=== PATIENT | female | born 1955 | race Caucasian/White ===

== ENCOUNTER 2018-12-14 00:44 | Inpatient (IN) | payer OTHER ==
[~2018-12-14] VITALS: Ht 134.6 cm; Wt 65.3 kg
[~2018-12-14 00:44] MED LIST: CARAFATE 11 GM/10 M1 PO; HUMALOG100 UNIT/1 SUBQ; LEVEMIR SUBQ; PROTONIX40 M1 PO; ZOFRAN ODT4 MG DISSOLVE
[2018-12-14 00:50] VITALS: BP 140/62
[2018-12-14 01:13] LABS: URINE BILIRUBIN NEGATIVE (Negative); URINE BLOOD 2+ (Negative); URINE COLOR YELLOW; URINE GLUCOSE-RANDOM* 1+ (Negative); URINE KETONES NEGATIVE (Negative); URINE NITRITE-REFLEX NEGATIVE (Negative); URINE PROTEIN (DIPSTICK) 1+ (Negative)
[2018-12-14 01:13] LABS: ABSOLUTE NEUTROPHILS 5.6 thou/uL (1.4-8.2); BASOPHILS 0.6 % (0.0-2.0); EOSINOPHILS 0.5 % (0.0-3.0); HEMATOCRIT 33.2 % (37.0-47.0); HEMOGLOBIN 10.9 gm/dL (12.0-15.0); LYMPHOCYTES 12.3 % (24.0-44.0); MCH 23.8 pg (26.0-34.0); MCHC 32.9 g/dL (28.0-37.0); MCV 72.4 fL (80.0-100.0); MONOCYTES 11.6 % (1.0-8.0); PLATELET COUNT 116 thou/uL (150-400); RBC 4.59 mil/uL (4.20-5.00); RDW 19.3 % (10.5-14.5); WBC 7.4 thou/uL (4.0-11.0)
[2018-12-14 01:14] LABS: URINE CLARITY CLOUDY; URINE LEUKOCYTES-REFLEX 1+ (Negative)
[2018-12-14 01:22] LABS: BACTERIA-REFLEX >30 Many /HPF (None Seen); CASTS None Seen /LPF (None Seen); CRYSTALS None Seen /LPF (None Seen); MUCUS None Seen strn/LPF (None Seen); SQUAMOUS None Seen /LPF (0-3); URINE RBC 3-10 Few /HPF (0-2)
[2018-12-14 01:25] LABS: ANION GAP 8 mmol/L (7-16); BUN 23 mg/dL (7-18); CHLORIDE 98 mmol/L (98-107); CO2 26 mmol/L (21-32); CREATININE 0.8 mg/dL (0.6-1.0); GLUCOSE 188 mg/dL (74-106); POTASSIUM 4.3 mmol/L (3.5-5.1); SODIUM 132 mmol/L (136-145)
[2018-12-14 01:36] LABS: ALBUMIN 2.8 g/dL (3.4-5.0); MAGNESIUM 1.6 mg/dL (1.8-2.4); SGOT 43 U/L (15-37); SGPT 49 U/L (30-65); TOTAL BILIRUBIN 0.9 mg/dL (<0.1-1.0); TOTAL PROTEIN 7.9 g/dL (6.4-8.2); TROPONIN-I <0.06 ng/mL (<0.06)
[2018-12-14 01:57] LABS: ANISOCYTOSIS 2+; HYPOCHROMASIA 1+; MICROCYTES 1+
[2018-12-14] MEDS ORDERED: LASIX 20 MG TAB20 MG PO (03:05)
[2018-12-14] MEDS ORDERED: SPIRONOLACTONE25 M1 PO (03:06)
[2018-12-14] MEDS ORDERED: LANSOPRAZOLE15 MG PO (03:06)
[2018-12-14] MEDS ORDERED: PROPRANOLOL 1010 MG PO (03:07)
[2018-12-14] MEDS ORDERED: HUMALOG100 UNIT/1 SUBQ (03:09)
[2018-12-14] MEDS ORDERED: LANTUS SUBQ (03:10)
--- NOTE | 2018-12-14 08:48 | EKG ---
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 : 1955 Requested By: Serafin Fuchs Order Number: [id number] MD: Lance Fernandez Measurements Intervals [place] Rate: 80 P: 12 RI: 128 QRS: 8 QRSD: 70 T: 28 QT: 341 QTc: 394 Interpretive Statements Sinus rhythm No significant abnormality No previous ECG available for comparison Electronically Signed On 12-14-2018 8:48:22 CDT by Lance Fernandez [email or web address] ��������������������������������������������� <ELECTRONICALLY SIGNED> ���������������������������������������� By: Lance Fernandez MD, [facility] ��������������������������������������������� 12/14/18 0848 0055 0055 Lance Fernandez MD, [facility] /EPI
[2018-12-14 12:28] LABS: CALCIUM 8.1 mg/dL (8.5-10.1); CREATININE 0.7 mg/dL (0.6-1.0); MAGNESIUM 2.1 mg/dL (1.8-2.4); POTASSIUM 4.4 mmol/L (3.5-5.1)
[2018-12-14 16:19] VITALS: BP 117/46
[2018-12-14 18:04] VITALS: BP 154/69
[2018-12-14 20:05] VITALS: BP 134/47
[2018-12-15 00:32] VITALS: BP 115/50
[2018-12-15 04:15] VITALS: BP 121/59
--- NOTE | 2018-12-15 04:19 | NUR ---
ASSUMED PT CARE AT 1900. PT A/OX4, NON-JORDANIAN SPEAKING, FAMILY AT BEDSIDE TO HELP TRANSLATE FOR PT. VITAL SIGNS STABLE, PT HAD A FEVER. TYLENOL GIVEN FOR THE FEVER WHICH SEEMED TO HELP. PT COMPLAINED OF SOME LEG AND BACK PAIN BUT DID NOT WANT PAIN MEDICATION. ADMISSION HISTORY COMPLETED WITH DAUGHTER'S INPUT. PT WAS ABLE TO REST THROUGH THE NIGHT. BLOOD SUGARS WITHIN NORMAL LIMITS. PROGRESSING TOWARD PLAN OF CARE. FAMILY AT BEDSIDE MOST OF THE TIME TO HELP WITH EFFECTIVE COMMUNICATION. WILL CONTINUE TO MONITOR.
[2018-12-15 08:00] VITALS: BP 124/55
--- NOTE | 2018-12-15 09:05 | EKG ---
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1955 Requested By: Herber Kline Order Number: [id number] MD: Lance Fernandez Measurements Intervals [place] Rate: 95 P: 42 NE: 147 QRS: 18 QRSD: 76 T: 31 QT: 337 QTc: 424 Interpretive Statements Sinus rhythm No significant abnormality Compared to ECG 12/14/2018 00:55:58 No significant change was found Electronically Signed On 12-15-2018 9:04:51 CDT by Lance Fernandez [email or web address] ��������������������������������������������� <ELECTRONICALLY SIGNED> ���������������������������������������� By: Lance Fernandez MD, [facility] ��������������������������������������������� 12/15/18 0904 11 11 Lance Fernandez MD, [facility] /EPI
--- NOTE | 2018-12-15 10:42 | NUR ---
AAOX4. CALM, COOPERATIVE. SPEAKS LITTLE LITHUANIAN; FAMILY AT BEDSIDE ARE FLUENT. AFEBRILE NOW. USES CALL LIGHT APPROPRIATELY. ASST TO BR, MINIMAL ASSIST. NPO AFTER BREAKFAST FOR CARDIAC TESTING. FREQUENT CHECKS; WILL CONTINUE TO MONITOR.
[2018-12-15 12:03] VITALS: BP 156/62
--- NOTE | 2018-12-15 12:24 | 2DMMODE ---
[facility] [address] [place] [address] 2 D/M-MODE ECHOCARDIOGRAM Name: LILLIAN HERMOSILLO Room #: 207-P ADM IN M.R.#: [id number] ������������� Admission: 12/14/18 ������������� Attend Phys: Herber Ryan Discharge: ��� ������������� ��� Date of : 55 Date of Service: 12/15/18 1224 �� Report #: [id number] �������� ��������������������������������������������[id number] THIS REPORT FOR: //name// APPROVED REPORT Study performed: 12/15/2018 11:18:44 EXAM: Comprehensive 2D, Doppler, and color-flow Echocardiogram Patient Location: Bedside Room #: 207 Status: routine BSA: 1.74 HR: 71 bpm BP: 124/55 mmHg Rhythm: NSR/PVCs Other Information Study Quality: Good Indications Dyspnea Chest Pain 2D Dimensions RVDd: 34.27 mm IVSd: 10.41 (7-11mm) LVOT Diam: 17.62 (18-24mm) LVDd: 39.49 mm PWd: 9.12 (7-11mm) Ascending Ao: 26.25 (22-36mm) LVDs: 28.53 (25-40mm) Aortic Root: 25.77 mm Volumes Left Atrial Volume (Systole) Single Plane 4CH: 42.38 mL Single Plane 2CH: 30.52 mL LA ESV Index: 24.00 mL/m2 Aortic Valve AoV Peak Pernell.: 1.76 m/s AO Peak Gr.: 12.44 mmHg LVOT Max P.25 mmHg LVOT Max V: 1.25 m/s NIKOLAY Vmax: 1.73 cm2 Mitral Valve E/A Ratio: 0.8 MV Decel. Time: 315.24 ms [facility] [email or web address] [place] [address] 2 D/M-MODE ECHOCARDIOGRAM Name: LILLIAN HERMOSILLO Room #: 207-[facility] IN [facility].#: [id number] ������������� Admission: 12/14/18 ������������� Attend Phys: Herber Ryan Discharge: ��� ������������� ��� Date of : 55 Date of Service: 12/15/18 1224 �� Report #: [id number] �������� ��������������������������������������������[id number] MV E Max Pernell.: 0.99 m/s MV A Pernell.: 1.24 m/s MV PHT: 91.42 ms IVRT: 73.82 ms Pulmonary Valve PV Peak Pernell.: 1.38 m/s PV Peak Gr.: 7.60 mmHg Pulmonary Vein P Vein S: 0.71 m/s P Vein A: 0.28 m/s P Vein D: 0.47 m/s P Vein A Dur.: 101.5 msec P Vein S/D Ratio: 1.51 Tricuspid Valve TR Peak Pernell.: 2.83 m/s RAP Estimate: 5.00 mmHg TR Peak Gr.: 32.12 mmHg PA Pressure: 37.00 mmHg Left Ventricle The left ventricle is normal size. There is normal LV segmental wall motion. There is normal left ventricular wall thickness. Left ventricular systolic function is normal. LVEF is 60-65%. Mild diastolic dysfunction is present (impaired relaxation pattern). Right Ventricle The right ventricle is normal size. The right ventricular systolic function is normal. Atria The left atrium size is normal. The right atrium size is normal. Aortic Valve Aortic valve is trileaflet, mildly thickened and calcified. No aortic regurgitation is present. There is no aortic valvular stenosis. Mitral Valve Mitral valve leaflets are mildly thickened. Minimal mitral annular calcification. Mild to moderate mitral regurgitation. Tricuspid Valve The tricuspid valve is normal in structure. Mild tricuspid regurgitation. Estimated PAP 35-40mmHg. [facility] [address] [place] [address] 2 D/M-MODE ECHOCARDIOGRAM Name: LILLIAN HERMOSILLO Room #: 207-[facility] IN .R.#: [id number] ������������� Admission: 12/14/18 ������������� Attend Phys: Herber Ryan Discharge: ��� ������������� ��� Date of : 55 Date of Service: 12/15/18 1224 �� Report #: [id number] �������� ��������������������������������������������[id number] Pulmonic Valve The pulmonary valve is normal in structure. Trace pulmonic regurgitation. Great Vessels The aortic root is normal in size. The ascending aorta is normal in size. IVC is normal in size and collapses >50% with inspiration. Pericardium There is no pericardial effusion. <Conclusion> The left ventricle is normal size. LVEF is 60-65%. Aortic valve is trileaflet, mildly thickened and calcified. Mitral valve leaflets are mildly thickened. Minimal mitral annular calcification. Mild to moderate mitral regurgitation. The tricuspid valve is normal in structure. Mild tricuspid regurgitation. Estimated PAP 35-40mmHg. The pulmonary valve is normal in structure. Trace pulmonic regurgitation. There is no pericardial effusion. ��������������������������������������������� <ELECTRONICALLY SIGNED> ���������������������������������������� By: Surjit Castro MD ��������������������������������������������� 12/15/18 1224 1224 1224 Surjit Castro MD /INF
[2018-12-15 16:00] VITALS: BP 145/68
--- NOTE | 2018-12-15 16:57 | EKG ---
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 : 1955 Requested By: Ana Freeman Order Number: [id number] MD: Lance Fernandez Measurements Intervals [place] Rate: 62 P: 15 TN: 134 QRS: 16 QRSD: 69 T: 21 QT: 425 QTc: 432 Interpretive Statements Sinus rhythm No significant abnormality Compared to ECG 12/14/2018 13:12:35 No significant changes Electronically Signed On 12-15-2018 16:57:28 CDT by Lance Fernandez [email or web address] ��������������������������������������������� <ELECTRONICALLY SIGNED> ���������������������������������������� By: Lance Fernandez MD, [facility] ��������������������������������������������� 12/15/18 1657 0 0 Lance Fernandez MD, [facility] /EPI
[2018-12-15 19:48] VITALS: BP 120/67; BP 131/59
--- NOTE | 2018-12-16 04:07 | NUR ---
ASSUMED PT CARE AT 1900. PT A/OX4, VITAL SIGNS STABLE, ASESSMENT CHARTED. FAMILY AT BEDSIDE THROUGH THE NIGHT. LEG PAIN ADEQAUTELY MANAGED WITH PAIN MEDICATION. NO FEVERS, TEMP WITHIN NORMAL LIMITS. PT RESTED WELL THROUGH THE NIGHT. PROGRESSING TOWARD PLAN OF CARE. WILL CONTINUE TO MONITOR.
[2018-12-16 04:28] LABS: HEMATOCRIT 30.5 % (37.0-47.0); HEMOGLOBIN 9.9 gm/dL (12.0-15.0); MCH 23.8 pg (26.0-34.0); MCHC 32.2 g/dL (28.0-37.0); MCV 73.9 fL (80.0-100.0); RBC 4.13 mil/uL (4.20-5.00); RDW 20.2 % (10.5-14.5); WBC 5.2 thou/uL (4.0-11.0)
[2018-12-16 04:41] LABS: ALBUMIN 2.2 g/dL (3.4-5.0); CALCIUM 7.8 mg/dL (8.5-10.1); CREATININE 0.9 mg/dL (0.6-1.0); MAGNESIUM 1.6 mg/dL (1.8-2.4); POTASSIUM 3.9 mmol/L (3.5-5.1); TOTAL BILIRUBIN 0.6 mg/dL (<0.1-1.0); TOTAL PROTEIN 6.7 g/dL (6.4-8.2)
[2018-12-16 04:45] VITALS: BP 117/51
[2018-12-16 08:52] VITALS: BP 142/57
--- NOTE | 2018-12-16 10:06 | NUR ---
AAOX4. SECOND HALF OF STRESS TEST SCHEDULED FOR THIS A.M. APPETITE BRISK AT BREAKFAST, INSULIN PER SLIDING SCALE ORDERED. JUST MEDICATED FOR PAIN IN THE ANTRUM/PALM OF HER LEFT FOOT. FAMILY REMAINS AT BEDSIDE. FREQUENT CHECKS; WILL CONTINUE TO MONITOR.
[2018-12-16 12:20] VITALS: BP 146/64
[2018-12-16] MEDS ORDERED: KEFLEX500 M1 PO (19:24)
[2018-12-16 19:28] VITALS: BP 146/64
[2018-12-16 19:48] VITALS: BP 149/68
--- NOTE | 2018-12-16 20:53 | NUR ---
ASSUMED PT CARE AT 1900. DISCHARGE ORDERS RECIEVED AROUND THIS TIME. VITAL SIGNS STABLE, ASSESSMENT CHARTED. BLOOD SUGAR 229, 4 UNITS OF INSULIN GIVEN PER PROTOCOL. IV DC'D AND DISCHARGE EDUCATION/ PAPER AND PRESCRIPTION GIVEN TO DAUGHTER. PT LEFT UNIT AT ABOUT 2014. PT CLINICALLY STABLE AT DISCHARGE.
== END 2018-12-16 20:22 | disposition home or self-care (01) | DRG 689 ==
LOC: ER 00:44 → EROBS 01:44 → 2N 01:44
PROVIDERS: Emergency Medicine; Nurse Practitioner Acute Care; Nurse Practitioner Family; ADMIT Hospitalist
DX: N39.0 Urinary tract infection, site not specified (principal); J18.9 Pneumonia, unspecified organism; R18.8 Other ascites; K76.6 Portal hypertension; E83.42 Hypomagnesemia; K74.60 Unspecified cirrhosis of liver; Z79.899 Other long term (current) drug therapy; Z79.4 Long term (current) use of insulin; Z88.8 Allergy status to other drugs, medicaments and biological substances; Z91.040 Latex allergy status; Z90.49 Acquired absence of other specified parts of digestive tract; Z98.891 History of uterine scar from previous surgery
CPT/HCPCS: 10081